=== PATIENT | female | born 1970 | race Caucasian/White ===

== ENCOUNTER 2017-05-28 02:04 | Emergency (ER) | payer OTHER ==
[~2017-05-28] VITALS: Ht 172.7 cm; Wt 65.8 kg
[2017-05-28] MEDS ORDERED: SODIUM CHLORIDE 0.9% 500 ML IVB ONE (02:39)
[2017-05-28 03:13] LABS: Basophils # (auto) 0 uL; Basophils % (auto) 0.2 % (0.0-2.0); Eosinophils # (auto) 0.8 uL; Eosinophils % (auto) 5.1 % (0.0-7.0); Hematocrit 48.3 % (36.0-46.0); Hemoglobin 16.5 g/dL (12.2-16.2); Lymphocytes # (auto) 1.3 uL; Lymphocytes % (auto) 8.3 % (10.0-50.0); Mean Corpuscular Hemoglobin 30.6 pg (28.0-32.0); Mean Corpuscular Hgb Conc. 34.2 g/dL (32.0-36.0); Mean Corpuscular Volume 89.5 fL (80.0-100.0); Mean Platelet Volume 9.5 fL (6.9-10.8); Monocytes # (auto) 0.8 uL; Neutrophils # (auto) 12.9 uL; Neutrophils % (auto) 81.4 % (37.0-80.0); Nucleated Red Blood Cells % 0.1 %; Platelet Count (auto) 244 10^3/uL (140-450); Red Cell Distribution Width 13.2 % (11.8-14.3); White Blood Cell 15.8 10^3/uL (4.4-10.8)
[2017-05-28 03:26] LABS: INR 0.96 (0.9-1.15); Prothrombin Time 10.5 sec (9.37-12.3)
[2017-05-28 03:33] LABS: Albumin 3.6 g/dL (3.4-5.0); Amylase 410 U/L (25-115); Anion Gap 7 (5-15); Aspartate Aminotransferase 14 U/L (15-37); BUN/Creatinine Ratio 23.3; Blood Urea Nitrogen 17 mg/dL (7-18); Calcium 8.5 mg/dL (8.5-10.1); Carbon Dioxide 25 mmol/L (21-32); Chloride 105 mmol/L (98-107); GFR African American 110 mL/min; GFR Non-African American 91 mL/min; Glucose 109 mg/dL (74-106); Magnesium 2.2 mg/dL (1.6-2.6); Potassium 3.9 mmol/L (3.5-5.1); Sodium 137 mmol/L (136-145)
[2017-05-28 03:40] LABS: Urine Bilirubin Negative (Negative); Urine Blood Negative /uL (Negative); Urine Color Yellow (Yellow); Urine Glucose Normal (Normal); Urine Ketone TRACE (Negative); Urine Mucus FEW (None Seen); Urine Nitrite Negative (Negative); Urine RBC 1 /hpf (0 - 4); Urine Squamous Epithelial Cell FEW /hpf (<5); Urine Urobilinogen Normal (Negative); Urine pH 5.5 (5.0-8.0)
[2017-05-28 03:42] LABS: Alkaline Phosphatase 50 U/L (45-117); Bilirubin, Total 0.7 mg/dL (0.2-1.0); Total Protein 7.7 g/dL (6.4-8.2)
[2017-05-28 05:08] VITALS: BP 112/72
== END 2017-05-28 06:17 | disposition home or self-care (01) ==
LOC: EDBD 02:04 → ER 02:09
DX: K85.90 Acute pancreatitis without necrosis or infection, unspecified (principal)
CPT/HCPCS: 36415; 71010; 76705; 80053; 81001; 82150; 83690; 83735; 84484; 84702; 85025; 85610; 85730; 93005; 99285; J7030

== ENCOUNTER 2020-01-08 17:27 | Inpatient (IN) | payer OTHER ==
[~2020-01-08] VITALS: Ht 172.7 cm; Wt 75.8 kg
[2020-01-08] MEDS ORDERED: SODIUM CHLORIDE 0.9% 1,000 ML IV ONE (18:00)
[2020-01-08] MEDS ORDERED: SODIUM CHLORIDE 0.9% 1,000 ML IVB ONE (18:39)
[2020-01-08] MEDS ORDERED: PANTOPRAZOLE 40 MG/10 ML VIAL INJ IV ONE (18:45)
[2020-01-08] MEDS ORDERED: ONDANSETRON HCL 4 MG/2 ML VIAL IV ONE (18:45)
[2020-01-08] MEDS ORDERED: MORPHINE SULFATE 4 MG/ML SYR/VIAL IV ONE (18:45)
[2020-01-08 18:46] LABS: Basophils # (auto) 0.1 10 ^3/uL (0-0.2); Basophils % (auto) 0.3 % (0.0-2.0); Eosinophils # (auto) 0.1 10 ^3/uL (0-0.8); Eosinophils % (auto) 0.6 % (0.0-7.0); Hematocrit 47.4 % (36.0-46.0); Hemoglobin 15.7 g/dL (12.2-16.2); Lymphocytes # (auto) 1.1 10 ^3/uL (0.4-5.4); Lymphocytes % (auto) 6.2 % (10.0-50.0); Mean Corpuscular Hemoglobin 29.3 pg (28.0-32.0); Mean Corpuscular Hgb Conc. 33.2 g/dL (32.0-36.0); Mean Corpuscular Volume 88.3 fL (80.0-100.0); Monocytes # (auto) 0.7 10 ^3/uL (0-1.3); Monocytes % (auto) 3.9 % (0.0-12.0); Neutrophils # (auto) 16.1 10 ^3/uL (1.6-8.6); Nucleated Red Blood Cells % 0.1 %; Platelet Count (auto) 295 10^3/uL (140-450); Red Blood Cells 5.37 10^6/uL (4.0-5.20); Red Cell Distribution Width 13.8 % (11.8-14.3)
[2020-01-08 18:58] LABS: INR 1.03 (0.9-1.15); Partial Thromboplastin Time 22.6 sec (23.64-32.05)
[2020-01-08 19:01] LABS: Albumin 3.7 g/dL (3.4-5.0); Calcium 8.3 mg/dL (8.5-10.1); Potassium 3.5 mmol/L (3.5-5.1)
[2020-01-08 19:09] LABS: Bilirubin, Total 0.8 mg/dL (0.2-1.0); Total Protein 7.3 g/dL (6.4-8.2)
[2020-01-08 20:06] LABS: Urine Bacteria FEW /hpf (None Seen); Urine Blood 3+ /uL (Negative); Urine Mucus FEW (None Seen); Urine Specific Gravity 1.026 (1.001-1.035); Urine WBC 4 /hpf (0 - 5)
[2020-01-08] MEDS ORDERED: ONDANSETRON HCL 4 MG/2 ML VIAL IV PRN (21:15)
[2020-01-08] MEDS ORDERED: LORazepam 0.5 MG TAB PO PRN (21:15)
[2020-01-08] MEDS ORDERED: DOCUSATE SOD 100 MG CAP PO PRN (21:15)
[2020-01-08] MEDS ORDERED: HYDROcodone-ACET 5/325MG TAB PO PRN (21:15)
[2020-01-08] MEDS: SODIUM CHLORIDE 0.9% 1,000 ML IV SCH (21:52)
[2020-01-08] MEDS: metroNIDAZOLE 500MG/100ML 100 ML IV SCH (21:57)
--- NOTE | 2020-01-08 22:15 | NUR ---
MS admit from ER ELLE HALL admitted to med surg. Patient is A&O X's 4 with no s/s of distress and reports no pain at this time. Patient oriented to LINDA MILIAN RN primary RN, unit, room, bed, and unit policies regarding patient care and visiting hours. Educated patient on POC and to use call light when in need of assistance. Patient verbalized understanding. Bed is in lowest/locked position with side rails up X's 2 and call light is within reach of Patient. Will continue care.
[2020-01-08 23:13] VITALS: BP 141/82
[2020-01-09] MEDS ORDERED: MELA3TAB27 PO (00:26)
[2020-01-09] MEDS ORDERED: ALBU2TAB4 IN (00:26)
[2020-01-09] MEDS ORDERED: FLUT250M2 IN (00:26)
[2020-01-09] MEDS ORDERED: AMOX250C3 PO (00:26)
[2020-01-09] MEDS: HYDROmorphone HCL 2 MG/ML VL IV PRN ×4 (00:58→23:15)
[2020-01-09] MEDS: SODIUM CHLORIDE 0.9% 1,000 ML IV SCH ×2 (01:09→04:45)
--- NOTE | 2020-01-09 01:28 | NUR ---
PAIN REASSESSMENT Patient is resting at this time. No s/s of discomfort seen. Will continue care.
[2020-01-09] MEDS: ACETAMINOPHEN 325 MG TAB PO PRN ×2 (04:39→13:56)
--- NOTE | 2020-01-09 04:46 | NUR ---
PAIN Patient c/o toothache. Tylenol given at this time. Will continue care.
[2020-01-09 05:45] VITALS: BP 104/63
[2020-01-09] MEDS: metroNIDAZOLE 500MG/100ML 100 ML IV SCH ×3 (05:59→23:14)
[2020-01-09 06:10] LABS: Basophils # (auto) 0 10 ^3/uL (0-0.2); Basophils % (auto) 0.4 % (0.0-2.0); Eosinophils # (auto) 0.4 10 ^3/uL (0-0.8); Hematocrit 40.2 % (36.0-46.0); Hemoglobin 13.5 g/dL (12.2-16.2); Lymphocytes # (auto) 1.7 10 ^3/uL (0.4-5.4); Mean Corpuscular Hemoglobin 30.2 pg (28.0-32.0); Mean Corpuscular Hgb Conc. 33.6 g/dL (32.0-36.0); Mean Corpuscular Volume 89.8 fL (80.0-100.0); Monocytes # (auto) 0.4 10 ^3/uL (0-1.3); Monocytes % (auto) 5.3 % (0.0-12.0); Neutrophils # (auto) 4.2 10 ^3/uL (1.6-8.6); Neutrophils % (auto) 63.3 % (37.0-80.0); Platelet Count (auto) 211 10^3/uL (140-450); Red Blood Cells 4.47 10^6/uL (4.0-5.20); Red Cell Distribution Width 14.1 % (11.8-14.3); White Blood Cell 6.7 10^3/uL (4.4-10.8)
[2020-01-09 06:28] LABS: Potassium 3.9 mmol/L (3.5-5.1)
[2020-01-09 06:36] LABS: BUN/Creatinine Ratio 16.2; Calcium 7.5 mg/dL (8.5-10.1)
--- NOTE | 2020-01-09 07:30 | NUR ---
Opening Shift Note Assuming care of patient at this time. Patient is resting in bed. Patient complains of pain of 5/10 to abdominal area. Patient states she would not like to be medicated at this time. Bed is locked and lowered with side rails up x2. Instructed patient on the plan of care for today and to call for assistance as needed. Call light within reach. Will continue to round hourly and as needed.
[2020-01-09 09:39] VITALS: BP 100/70
[2020-01-09] MEDS ORDERED: SODIUM CHLORIDE 0.9% 1,000 ML IV SCH (10:30)
[2020-01-09 13:02] VITALS: BP 98/65
[2020-01-09] MEDS ORDERED: IOHEXOL 300 MG/ML 100ML BOTTLE IJ ONE (13:14)
[2020-01-09 13:41] LABS: Cholesterol 184 mg/dL (< 200)
[2020-01-09 13:44] LABS: HDL Cholesterol 52 mg/dL (40-59); LDL Cholesterol 128 mg/dL (< 100); Triglycerides 73 mg/dL (< 150)
--- NOTE | 2020-01-09 14:15 | NUR ---
IV insertion 20g IV inserted to the left forearm by Gemini Womack RN. Per BHARTI Singletary, patient was anxious and apprehensive before IV insertion. After IV inserted, this RN to re-flush IV to ease patient's apprehension with BHARTI Singletary standing at bedside. IV flushed at this time, no redness or swelling noted to site. Reassured patient that IV is patent with no signs of infiltration of bleeding. Offered to place another IV if the patient would feel more comfortable. Patient refused. Informed patient that this IV is only for the contrast study and can be removed upon returning to floor due to other IV access. Principal Technologist at bedside to take patient down. Awaiting patient's return to the floor.
--- NOTE | 2020-01-09 14:20 | NUR ---
IV infiltrated Notified from Radiology that patient's IV infiltrated upon contrast administration. Was told by Maury that patient's IV initially flushed with no problem. However, when machine administered contrast patient's began to complain of pain.
--- NOTE | 2020-01-09 14:30 | NUR ---
IV placement Patient is refusing to have new IV placed. Patient is refusing to have CT scan.
--- NOTE | 2020-01-09 14:31 | NUR ---
Patient Crying Patient is crying and screaming that she is in pain. Asked patient is she would like pain medication at this time. Patient refused. Patient currently has hot packs to site and old IV was removed. Patient's site does appear hard to touch and slightly reddened. Patient's arm does not appear swollen.
--- NOTE | 2020-01-09 14:38 | NUR ---
Page to Dr. Mccartney Page to Dr. Mccartney. Made Aware of patient's pain to infiltrated IV site. Will alternate heat and cold compress to patient's infiltrated site.
[2020-01-09 16:39] VITALS: BP 138/98
[2020-01-09] MEDS: LACTATED RINGER'S 1,000 ML IV SCH (17:00)
--- NOTE | 2020-01-09 17:11 | NUR ---
0815 01/09/20 - Faxed to [facility] at [phone] face sheet, transfer order to [facility] facility, labs, meds, consults, imaging. Spoke with sap analyst Keerthi who stated authorization pending review of all clinicals. She also stated there are currently no available beds in [facility] facilities in [facility].
[2020-01-09] MEDS ORDERED: ATORVASTATIN 20 MG TAB PO SCH (18:00)
--- NOTE | 2020-01-09 19:00 | NUR ---
Page to On-call hospitalist Page to Dr. Chanel. Awaiting callback.
--- NOTE | 2020-01-09 19:05 | NUR ---
Call from hospitalist Call back from hospitalist at this time. Dr. Chanel made aware of patient's arm still being hard to palpation despite alternating hot and cold compresses. Patient is crying and afraid that she is going to lose feeling in her arm. Patient is able to move fingers. New orders given at this time.
[2020-01-09] MEDS ORDERED: diphenhdrAMINE-ZINC ACETATE 1 APPLIC APPL TOP PRN (19:30)
--- NOTE | 2020-01-09 19:30 | NUR ---
Closing Shift Note Patient is resting in bed. Report given. Will endorse care to the night shift supervisor RN.
--- NOTE | 2020-01-09 19:30 | NUR ---
Opening Shift Note Received report from juan m Rubalcava RN. Assumed care of patient, awake and alert. No S/S of distress/SOB but c/o jo-ann to left arm and abd. Will give pain medication as ordered. Instructed on POC and to call for assist PRN, will continue to monitor for changes Q1hr and PRN. Bed placed in lowest position and call light within reach.
[2020-01-09] MEDS ORDERED: methylPREDNISolone SOD SUCC 40 MG/ML VL IV ONE (19:45)
--- NOTE | 2020-01-09 21:00 | NUR ---
Hot and cold compress done to swollen left arm. Patient refused to have another IV done. Patient started to feel little relief.
[2020-01-09 22:00] VITALS: BP 122/71
[2020-01-10] MEDS: LACTATED RINGER'S 1,000 ML IV SCH ×2 (00:20→04:38)
--- NOTE | 2020-01-10 01:37 | NUR ---
ROUNDS PATIENT STATES THAT SHE IS ABLE TO MOVE HER HANDS AND ARM A LITTLE MORE AND ABLE TO USE THE ARM. SWELLING HAS GONE DOWN. WILL CONTINUE TO MONITOR.
[2020-01-10 05:00] VITALS: BP 99/58
[2020-01-10] MEDS: metroNIDAZOLE 500MG/100ML 100 ML IV SCH (05:58)
--- NOTE | 2020-01-10 07:30 | NUR ---
Opening Shift Note Assuming care of patient at this time. Patient is resting in bed. Patient complains of pain of 3/10 to abdominal area. Patient states she would not like to be medicated at this time. Bed is locked and lowered with side rails up x2. Instructed patient on the plan of care for today and to call for assistance as needed. Call light within reach. Will continue to round hourly and as needed.
[2020-01-10 09:07] VITALS: BP 109/59
[2020-01-10 13:02] VITALS: BP 113/79
[2020-01-10 16:19] VITALS: BP 113/79
[2020-01-10 17:26] VITALS: BP 121/69
--- NOTE | 2020-01-10 17:34 | NUR ---
1715 01/10/20 - Contacted [facility] at [phone], requesting authorization for continued inpatient stay. Spoke with telephonic case manager MARIBEL who stated clinicals were under review, authorization pending.
--- NOTE | 2020-01-10 17:54 | NUR ---
Discharge Discharge instructions given as ordered. Encourage to follow up with PMD as instructed. All questions and concerns addressed. Patient verbalized understanding. Medication reconciliation form completed and copy given to patient. IV removed with catheter intact, pressure dressing applied. Patient taken to vehicle via wheelchair with all personal belongings, accompanied by staff. Patient waiting in lobby for . No distress noted at time of departure.
== END 2020-01-10 17:50 | disposition home or self-care (01) | DRG 440 ==
LOC: ER 17:27 → OVERFLOW 17:28 → WEST WING 22:15
PROVIDERS: ADMIT Hospitalist; ATTEND Internal Medicine Nephrology
DX: K85.90 Acute pancreatitis without necrosis or infection, unspecified (principal); E78.5 Hyperlipidemia, unspecified; Z88.0 Allergy status to penicillin
CPT/HCPCS: 36415; 76705; 80048; 80053; 80061; 81001; 82150; 83690; 83970; 84702; 85025; 85610; 85730; C9113; G0378; J2405; J3490